=== PATIENT | female | born 1965 | race Caucasian/White ===

== ENCOUNTER 2017-09-30 19:52 | Emergency (ER) | payer OTHER ==
[~2017-09-30] VITALS: Ht 154.9 cm; Wt 66.1 kg
[~2017-09-30 19:52] MED LIST: CITALOPRAM HBR20 MG PO; MEDROL DOSEPAK4 MG PO; NOHOMEMEDS; PERCOCET 5/31 TABLET PO; ~No Medications
[2017-10-01 00:26] VITALS: BP 115/80
== END 2017-10-01 00:27 | disposition home or self-care (01) ==
LOC: EME 19:52
DX: S00.03XA Contusion of scalp, initial encounter (principal); M43.6 Torticollis; W01.0XXA Fall on same level from slipping, tripping and stumbling without subsequent striking against object, initial encounter; Z87.891 Personal history of nicotine dependence
CPT/HCPCS: 70450; 99281; 99283